=== PATIENT | female | born 1935 | race African-American/Black ===

== ENCOUNTER → 2016-12-19 | Outpatient (CLI) | payer MEDICARE, BC | END | disposition home or self-care (01) | LOC: MAMMO 10:18 | DX: R92.8 Other abnormal and inconclusive findings on diagnostic imaging of breast (principal); Z85.3 Personal history of malignant neoplasm of breast | CPT/HCPCS: G0204 ==

== ENCOUNTER → 2018-01-03 | Outpatient (CLI) | payer MEDICARE, BC | END | disposition home or self-care (01) | LOC: RAD 09:23 | DX: C50.512 Malignant neoplasm of lower-outer quadrant of left female breast (principal) | CPT/HCPCS: 77066 ==

== ENCOUNTER → 2020-06-15 | Outpatient (CLI) | payer MEDICARE | END | disposition home or self-care (01) | LOC: LAB 11:19 | DX: Z20.828 Contact with and (suspected) exposure to other viral communicable diseases (principal) | CPT/HCPCS: C9803; U0003 ==

== ENCOUNTER → 2020-06-17 | Outpatient (CLI) | payer MEDICARE | END | disposition home or self-care (01) | LOC: US 09:13 | DX: N64.4 Mastodynia (principal) | CPT/HCPCS: 76642 ==

== ENCOUNTER → 2021-04-26 | Outpatient (CLI) | payer MEDICARE | END | disposition home or self-care (01) | LOC: MAMMO 09:14 | DX: Z12.31 Encounter for screening mammogram for malignant neoplasm of breast (principal); Z85.3 Personal history of malignant neoplasm of breast | CPT/HCPCS: 76641; 77067 ==